=== PATIENT | female | born 1990 | race Caucasian/White ===

== ENCOUNTER 2018-01-19 10:13 | Inpatient (IN) | payer OTHER ==
[2018-01-19] MEDS ORDERED: BUTORPHANOL 1 MG INJ IV (12:30)
[2018-01-19] MEDS ORDERED: OXYTOCIN 30 UNITS/LR 500 ML IV ×2 (12:30→21:30)
[2018-01-19] MEDS ORDERED: CARBOPROST 250 MCG INJ IM ×2 (12:30→21:30)
[2018-01-19] MEDS ORDERED: METHYLERGONOVINE 0.2 MG INJ IM ×2 (12:30→21:30)
[2018-01-19] MEDS ORDERED: LIDOCAINE 1% (MPF) 30 ML INJ INJ (12:30)
[2018-01-19] MEDS ORDERED: MISOPROSTOL 200 MCG TAB PR ×2 (12:30→21:30)
[2018-01-19] MEDS: LACTATED RINGER'S 1,000 ML IV* ×2 (12:35→21:17)
[2018-01-19 12:49] LABS: ADD MAN DIFF? NO
[2018-01-19 12:51] LABS: BASOPHILS % 0.4 % (0.0-2.0); EOSINOPHILS % 0.1 % (0.0-7.0); HEMATOCRIT 37.6 % (37.0-47.0); HEMOGLOBIN 12.9 g/dl (12.0-16.0); LYMPHOCYTES # 1.7 10^3/ul (0.8-2.9); MEAN CORPUSCULAR HEMOGLOBIN 30.7 pg (29.0-33.0); MEAN CORPUSCULAR HGB CONC 34.3 g/dl (32.0-37.0); MEAN CORPUSCULAR VOLUME 89.5 fl (82.0-101.0); MEAN PLATELET VOLUME 11.1 fl (7.4-10.4); MONOCYTE # 0.4 10^3/ul (0.3-0.9); MONOCYTES % 4.1 % (0.0-11.0); NEUTROPHIL # 8.3 10^3/ul (1.6-7.5); NEUTROPHILS % 78.7 % (39.0-77.0); PLATELET COUNT 205 10^3/UL (140-415); RED CELL DISTRIBUTION WIDTH 14.1 % (11.5-14.5)
[2018-01-19 12:51] LABS: WHITE BLOOD COUNT 10.6 10^3/ul (4.8-10.8)
[2018-01-19] MEDS: BUTORPHANOL 2 MG INJ IV ×2 (12:51→17:33)
[2018-01-19 13:50] LABS: PROTIME 13.3 Sec (11.9-14.9)
[2018-01-19 13:51] LABS: PARTIAL THROMBOPLASTIN TIME 26.4 Sec (25.0-35.0)
[2018-01-19] MEDS ORDERED: EPHEDrine SULFATE 50 MG/5 ML SYG IV (14:30)
[2018-01-19] MEDS ORDERED: NALOXONE (0.4 MG/ML) INJ IV (14:30)
[2018-01-19] MEDS ORDERED: FENTAnyl 2MCG/ML-ROPIV 0.2% 100 ML BAG EPI (14:30)
[2018-01-19] MEDS ORDERED: DIPHENHYDRAMINE 50 MG INJ IV (14:30)
[2018-01-19] MEDS ORDERED: ONDANSETRON 4 MG INJ IV (14:30)
[2018-01-19] MEDS: OXYTOCIN 30 UNITS/LR 500 ML IV ×3 (17:35→23:57)
[2018-01-19] MEDS ORDERED: HYDROCODONE/APAP (5/325) TAB PO ×2 (21:30)
[2018-01-19] MEDS ORDERED: DIBUCAINE 1% 30 GM OINT PR (21:30)
[2018-01-19 22:28] LABS: HEPATITIS B SURFACE ANTIGEN NEGATIVE (NEGATIVE)
[2018-01-19] MEDS: IBUPROFEN 600 MG TAB PO (23:51)
[2018-01-19] MEDS: BENZOCAINE 20% 56 ML SPRAY TOP (23:52)
[2018-01-19] MEDS: WITCH HAZEL/GLYCERIN PAD PR (23:52)
[2018-01-19] MEDS: LANOLIN 7 GM TUBE TOP (23:53)
[2018-01-20] MEDS: LACTATED RINGER'S 1,000 ML IV* (04:52)
[2018-01-20] MEDS: IBUPROFEN 600 MG TAB PO ×4 (05:06→23:39)
[2018-01-20 07:20] LABS: ADD MAN DIFF? NO
[2018-01-20 07:31] LABS: WHITE BLOOD COUNT 12.1 10^3/ul (4.8-10.8)
[2018-01-20 07:31] LABS: BASOPHIL # 0.1 10^3/ul (0.0-0.1); BASOPHILS % 0.4 % (0.0-2.0); EOSINOPHILS # 0.1 10^3/ul (0.0-0.5); EOSINOPHILS % 0.8 % (0.0-7.0); HEMATOCRIT 35.7 % (37.0-47.0); HEMOGLOBIN 11.9 g/dl (12.0-16.0); LYMPHOCYTES # 2.5 10^3/ul (0.8-2.9); LYMPHOCYTES % 20.9 % (15.0-51.0); MEAN CORPUSCULAR HEMOGLOBIN 30.7 pg (29.0-33.0); MEAN CORPUSCULAR HGB CONC 33.3 g/dl (32.0-37.0); MONOCYTE # 0.8 10^3/ul (0.3-0.9); MONOCYTES % 6.2 % (0.0-11.0); NEUTROPHIL # 8.6 10^3/ul (1.6-7.5); NEUTROPHILS % 71.1 % (39.0-77.0); PLATELET COUNT 182 10^3/UL (140-415); RED BLOOD COUNT 3.88 10^6/ul (4.20-5.40); RED CELL DISTRIBUTION WIDTH 14.2 % (11.5-14.5)
[2018-01-20 17:34] LABS: RAPID PLASMA REAGIN NONREACTIVE (NR)
[2018-01-21] MEDS: IBUPROFEN 600 MG TAB PO ×2 (05:28→11:34)
[2018-01-21] MEDS: DIPHTH/TET/ACEL PERTUSS (ADULT) 0.5 ML VIAL IM* (08:21)
[2018-01-21] MEDS: MEASLES,MUMPS,RUBELLA VACCINE INJ SC* (08:24)
[2018-01-21] MEDS: VARICELLA VACCINE LIVE/PF 1,350 UNIT/0.5 ML ML SC* (08:25)
== END 2018-01-21 17:15 | disposition home or self-care (01) | DRG 775 ==
LOC: OBT 10:13 → L-D 10:13 → OBT 12:15 → L-D 12:15 → PP1 19:43
PROVIDERS: Obstetrics & Gynecology
PROC: 10E0XZZ Delivery of Products of Conception, External Approach (ICD-10-PCS; principal; 2018-01-19)
PROC: 0HQ9XZZ Repair Perineum Skin, External Approach (ICD-10-PCS; 2018-01-19)
DX: O70.0 First degree perineal laceration during delivery (principal); O69.81X0 Labor and delivery complicated by cord around neck, without compression, not applicable or unspecified; O48.0 Post-term pregnancy; Z37.0 Single live birth; Z3A.40 40 weeks gestation of pregnancy
CPT/HCPCS: 62319; 85025; 85610; 85730; 86592; 86850; 86900; 86901; 87340